=== PATIENT | male | born 1975 | race Hispanic/Latino ===

== ENCOUNTER 2019-03-15 09:18 | Emergency (ER) | payer SELFPAY ==
--- NOTE | 2019-03-15 09:58 | HP ---
ER PHYSICIAN: Dr. Ponce. TRAUMA SURGEON: Dr. Lyn. HISTORY: The patient was a 42-year-old male, who presented to the emergency department via EMS after he fell 20 feet off the roof. The patient fell head first while working on a roof. He fell through a skylight and to the concrete ground. EMS reported at the time of their arrival the patient was pulseless and CPR was initiated. He was intubated before arrival. They reported that he received two rounds of epi and he had an 18-gauge IV in his right upper extremity. Upon evaluation in the emergency department, cardiac FAST demonstrated no wall motion. Emergency room physician performed bilateral needle thoracostomies. The patient received an additional [address] Lyn had been contacted as this was a level 1 trauma activation. The patient was then re-evaluated with a second cardiac FAST, which again demonstrated no cardiac wall motion activity. EMS reported the patient with PEA the entire time for them. The patient was PEA to asystole for us and was pulseless the entire time. He did have a very large 8 to 10 cm laceration with open displaced skull fracture in the frontal area extending into the nasal bridge. Pupils were fixed and dilated. There were no signs of life and all lifesaving measures were then terminated by the emergency room physician. Time of was called before arrival of Dr. Lyn. Job ID: [id number]
== END 2019-03-15 09:23 | disposition expired ==
LOC: ERS 09:18 → EDBD 09:18 → ERS 09:23
DX: I46.9 Cardiac arrest, cause unspecified (principal); S02.0XXA Fracture of vault of skull, initial encounter for closed fracture; W17.89XA Other fall from one level to another, initial encounter
CPT/HCPCS: 32551; 92950; 96374; G0390